=== PATIENT | female | born 1980 | race Caucasian/White ===

== ENCOUNTER → 2016-07-19 | Outpatient (CLI) | payer BC, SELFPAY ==
--- NOTE | 2016-07-20 07:47 | RAD ---
EXAM DESCRIPTION: Foot,Left 3 Views CLINICAL HISTORY: 36 years Female, PAIN IN LEFT FOOT COMPARISON: None. FINDINGS: 3 views of the left foot show a nondisplaced transversely oriented fracture involving the base of the first metatarsal with extension to the fifth TMT joint surface. No additional fracture or malalignment is seen. There are degenerative changes in the midfoot. Calcaneal spurring is noted at the insertion sites of the plantar fascia and Achilles tendon. IMPRESSION: Nondisplaced fifth metatarsal base fracture. Electronically signed by: Marcellus Strickland MD 07/20/2016 7:46 AM CDT Workstation: [email or web address] [place]
== END | disposition home or self-care (01) ==
LOC: RAD 07:53
PROVIDERS: ATTEND Orthopaedic Surgery
DX: M79.672 Pain in left foot (principal)

== ENCOUNTER → 2016-08-19 | Outpatient (CLI) | payer BC ==
--- NOTE | 2016-08-19 13:36 | RAD ---
EXAM DESCRIPTION: Foot,Left 3 Views CLINICAL HISTORY: 36 years, Female, METATARSAL BONE FX (5TH) COMPARISON: None TECHNIQUE: AP, lateral, and oblique views of the left foot FINDINGS: The bones are normally aligned. A nondisplaced minimally distracted fracture at the base of the fifth metatarsal is present. Extensive calcaneal spurring is noted. Incidental note of a claw toe deformity of toes two through five is evident with normal alignment of the great toe. Extensive calcaneal spurring or enthesophyte formation at the plantar arch origin is noted. IMPRESSION: Transverse fracture at the base of the fifth metatarsal consistent with an evulsion injury. Electronically signed by: Nader Lopez MD 08/19/2016 1:34 PM CDT
== END ==
LOC: RAD 07:48
PROVIDERS: ATTEND Orthopaedic Surgery
DX: S92.355A Nondisplaced fracture of fifth metatarsal bone, left foot, initial encounter for closed fracture (principal)

== ENCOUNTER → 2016-09-15 | Outpatient (CLI) | payer BC ==
--- NOTE | 2016-09-16 09:42 | RAD ---
Left foot three views INDICATION: Metatarsal fracture COMPARISON: July 2016 previous images are not currently available IMPRESSION: There is an ossified fragment at the base of the fifth metatarsal. This appears to be a nonunited fracture. 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 Prominent Achilles and plantar enthesophytes. No widening of the Lisfranc interval. No gross displacement of the ossicle. Electronically signed by: Rad Edwards MD 09/16/2016 9:41 AM CDT
== END | disposition home or self-care (01) ==
LOC: RAD 10:27
PROVIDERS: ATTEND Orthopaedic Surgery
DX: S92.302D Fracture of unspecified metatarsal bone(s), left foot, subsequent encounter for fracture with routine healing (principal)

== ENCOUNTER → 2016-10-25 | Outpatient (CLI) | payer BC ==
--- NOTE | 2016-10-26 10:25 | RAD ---
EXAM DESCRIPTION: Foot,Left 3 Views CLINICAL HISTORY: 36 years Female, METATARSAL BONE FX COMPARISON: September 15, 2016 FINDINGS: 3 views of the left foot again show a nondisplaced, nonunited fracture involving the base of the left fifth metatarsal, unchanged from the patient's previous study. No new fracture or malalignment is identified. The joint spaces are well-maintained. There is calcaneal spurring at the insertion sites of the plantar fascia and Achilles tendon. No radiopaque foreign body or soft tissue gas. Degenerative changes are noted in the midfoot. IMPRESSION: Nonunited, nondisplaced left fifth metatarsal base fracture, unchanged from September 15, 2016. No new abnormality. Electronically signed by: Marcellus Strickland MD 10/26/2016 10:24 AM CDT
== END ==
LOC: RAD 00:01
PROVIDERS: ATTEND Orthopaedic Surgery
DX: S92.302D Fracture of unspecified metatarsal bone(s), left foot, subsequent encounter for fracture with routine healing (principal)

== ENCOUNTER → 2016-11-25 | Outpatient (CLI) | payer BC ==
--- NOTE | 2016-11-26 09:12 | RAD ---
EXAM DESCRIPTION: Foot,Left 3 Views CLINICAL HISTORY: 36 years, Female, METATARSAL BONE FX COMPARISON: October 25, 2016 TECHNIQUE: AP, lateral, and oblique views of the left foot FINDINGS: Healing transverse fracture at the proximal base of the fifth metatarsal. No other finding of note. IMPRESSION: Healing fracture fifth metatarsal Electronically signed by: Nicanor Stoner MD 11/26/2016 9:11 AM CDT
== END | disposition home or self-care (01) ==
LOC: RAD 08:23
PROVIDERS: ATTEND Orthopaedic Surgery
DX: S92.355D Nondisplaced fracture of fifth metatarsal bone, left foot, subsequent encounter for fracture with routine healing (principal); X58.XXXA Exposure to other specified factors, initial encounter

== ENCOUNTER → 2020-01-25 | Outpatient (CLI) | payer BC | LOC: YCFC.O 10:17 | PROVIDERS: ATTEND Nurse Practitioner | DX: Z20.828 Contact with and (suspected) exposure to other viral communicable diseases (principal) ==